=== PATIENT | female | born 1970 | race Caucasian/White ===

== ENCOUNTER 2018-01-29 18:07 | Emergency (ER) | payer BC ==
[2018-01-29 18:19] VITALS: BP 123/77
--- NOTE | 2018-01-29 18:41 | EDM.PDOC ---
ED HPI GENERAL MEDICAL PROBLEM - General Chief Complaint: Respiratory Problem Stated Complaint: CHEST PAIN / SOB Time Seen by Provider: 01/29/18 18:25 Source of Information: Reports: Patient, Old Records, RN History Limitations: Reports: No Limitations - History of Present Illness INITIAL COMMENTS - FREE TEXT/NARRATIVE: 47 yo female s/p gastric bypass presents with subjective SOB that began this afternoon. Feels a little light headed at times. Has what feels like a mild cold with a rare cough. No calf pain or LE edema. No black or bloody stools. No vomiting. No fever. Has a hx of anemia that felt like this. Has no current family doctor after her provider moved away about 5 yrs ago. No pleuritic chest pain. Has no hx of anxiety. Was here 06/20/15 and was found to have mild anemia and her HR was the same at today, 100. Her presenting complaint was similar to today and it was felt that most of her sx's were due to anxiety. She was encouraged to obtain a primary care provider, apparently she failed to do so. Onset: Today Onset Date: 01/29/18 Onset Time: 13:00 Duration: Hour(s):, Waxing/Waning Quality: Reports: Other (no pain) Severity: Mild Improves with: Reports: None Worsens with: Reports: None Context: Reports: Other (Feels similar to when she had anemia.) Associated Symptoms: Reports: No Other Symptoms Treatments DIRECTOR WORK: Reports: Other (see below) (none) - Related Data Allergies Allergy/AdvReac Type Severity Reaction Status Date / Time No Known Allergies Allergy Verified 01/29/18 18:20 Home Meds: Home Meds Calcium Citrate 500 mg PO BID #100 tablet 04/27/15 [Rx] Cholecalciferol (Vitamin D3) [Vitamin D-3] 5,000 unit PO DAILY #100 capsule 08/03 [Rx] Cyanocobalamin (Vitamin B12) [Vitamin B12] 2,500 mcg SL DAILY #100 tab.sl [Rx] Multivitamins with Iron [Child Chew Iron] 1 tab CHEW BID #100 tab.chew [Rx] Vitamin B Complex [B Complex] 1 each PO DAILY #100 tablet 04/27/15 [Rx] Iron Bis-Gly/FA/C/B12/Ca/Succ [Iron 08/06 Tablet] 1 tab PO DAILY 06/19/15 [ History] Past Medical History Other Musculoskeletal History: breast reduction - Past Surgical History GI Surgical History: Reports: Bariatric Procedure Female Surgical History: Reports: Breast Reduction, Section Social & Family History - Tobacco Use Smoking Status *Q: Current Every Day Smoker Years of Tobacco use: 18 Packs/Tins Daily: 0.5 Used Tobacco, but Quit: Yes Month/Year Tobacco Last Used: 6 years ago Second Hand Smoke Exposure: No - Caffeine Use Caffeine Use: Reports: Coffee - Alcohol Use Days Per Week of Alcohol Use: 0 - Recreational Drug Use Recreational Drug Use: No - Living Situation & Occupation Living situation: Reports: , with Spouse ED ROS GENERAL - Review of Systems Review Of Systems: See Below Constitutional: Reports: No Symptoms Respiratory: Reports: Shortness of Breath, Cough. Denies: Wheezing, Pleuritic Chest Pain, Sputum, Hemoptysis Cardiovascular: Reports: Palpitations (at times) Endocrine: Reports: No Symptoms GI/Abdominal: Reports: No Symptoms : Reports: No Symptoms Musculoskeletal: Reports: No Symptoms Skin: Reports: No Symptoms Neurological: Reports: No Symptoms Psychiatric: Reports: No Symptoms ED EXAM, GENERAL - Physical Exam Exam: See Below Exam Limited By: No Limitations General Appearance: Alert, WD/WN, No Apparent Distress Eye Exam: Bilateral Eye: Normal Inspection, PERRL Ears: Normal External Exam, Normal Canal, Hearing Grossly Normal, Normal TMs Ear Exam: Bilateral Ear: Auricle Normal, Canal Normal, TM normal Nose: Normal Inspection, Normal Mucosa, No Blood Throat/Mouth: Normal Inspection, Normal Lips, Normal Oropharynx, Normal Voice, No Airway Compromise Head: Atraumatic, Normocephalic Neck: Normal Inspection, Supple, Non-Tender Respiratory/Chest: No Respiratory Distress, Lungs Clear, Normal Breath Sounds, No Accessory Muscle Use, Other (Mild L chest wall tenderness) Cardiovascular: Regular Rate, Rhythm (Rate around 100/min) GI/Abdominal: Normal Bowel Sounds, Soft, Non-Tender, No Distention Back Exam: Normal Inspection. No: CVA Tenderness (R), CVA Tenderness (L) Extremities: Normal Inspection, Normal Range of Motion, Non-Tender, No Pedal Edema Neurological: Alert, Oriented, CN II-XII Intact, Normal Cognition, No Motor/ Sensory Deficits Psychiatric: Normal Affect, Normal Mood Skin Exam: Warm, Dry, Intact, Normal Color, No Rash Lymphatic: No Adenopathy Course - Vital Signs Text/Narrative:: Feeling better after Ativan 0.5 mg po Last Recorded V/S: Last Vital Signs Temp 36.7 C 01/29/18 18:17 Pulse 90 01/29/18 18:17 Resp 16 01/29/18 18:17 BP 123/77 01/29/18 18:17 Pulse Ox 100 01/29/18 18:17 Orthostatic Blood Pressure [ 100/67 Supine] Orthostatic Blood Pressure [ 112/77 Standing] Orthostatic Blood Pressure [ 110/76 Sitting] - Orders/Labs/Meds Orders: Active Orders 24 hr Category Date Time Status Cardiac Monitoring [RC] .As Directed Care 01/29/18 18:34 Active Orthostatic Vital Signs [RC] ASDIRECTED Care 01/29/18 18:34 Active Labs: Laboratory Tests 01/29/18 01/29/18 Range/Units 18:49 18:49 WBC 9.9 (4.5-11.0) K/uL RBC 4.53 (3.30-5.50) M/uL Hgb 11.8 L (12.0-15.0) g/dL Hct 36.6 (36.0-48.0) % MCV 81 (80-98) fL MCH 26 L (27-31) pg MCHC 32 (32-36) % Plt Count 219 (150-400) K/uL Sodium 143 (140-148) mmol/L Potassium 3.8 (3.6-5.2) mmol/L Chloride 105 (100-108) mmol/L Carbon Dioxide 26 (21-32) mmol/L Anion Gap 12.5 (5.0-14.0) mmol/L BUN 14 (7-18) mg/dL Creatinine 0.8 (0.6-1.0) mg/dL Est Cr Clr Drug Dosing 68.02 mL/min Estimated GFR (MDRD) > 60 (>60) Glucose 70 L (74-106) mg/dL Calcium 8.8 (8.5-10.1) mg/dL Meds: Medications Discontinued Medications Generic Name Dose Route Start Last Admin Trade Name Freq PRN Reason Stop Dose Admin Lorazepam 0.5 mg 01/29/18 19:13 01/29/18 19:17 Ativan PO 01/29/18 19:14 0.5 mg ONETIME ONE Administration Departure - Departure Time of Disposition: 19:58 Disposition: Home, Self-Care 01 Condition: Good Clinical Impression: Viral URI with cough, Chest wall tenderness - Discharge Information Referrals: PCP,None [Primary Care Provider] - Forms: ED Department Discharge - My Orders Last 24 Hours: My Active Orders 01/29/18 18:34 Cardiac Monitoring [RC] .As Directed Orthostatic Vital Signs [RC] ASDIRECTED - Assessment/Plan Last 24 Hours: My Active Orders 01/29/18 18:34 Cardiac Monitoring [RC] .As Directed Orthostatic Vital Signs [RC] ASDIRECTED
[2018-01-29] MEDS ORDERED: LORazepam 0.5 MG Tab PO ONE (19:13)
== END 2018-01-29 20:08 | disposition home or self-care (01) ==
LOC: JP.ED 18:07
DX: J06.9 Acute upper respiratory infection, unspecified (principal); F17.210 Nicotine dependence, cigarettes, uncomplicated; Z79.899 Other long term (current) drug therapy
CPT/HCPCS: 36415; 80048; 85027; 99285; A9270-GY

== ENCOUNTER 2019-05-04 13:34 | Emergency (ER) | payer BC ==
[2019-05-04 14:03] VITALS: BP 104/56
[2019-05-04] MEDS ORDERED: Sodium Chloride 0.9% 10 ML Syringe FLUSH ONE (14:48)
[2019-05-04] MEDS ORDERED: Sodium Chloride 0.9% 80 ML IV ONE (14:48)
--- NOTE | 2019-05-04 14:52 | EDM.PDOC ---
ED HPI GENERAL MEDICAL PROBLEM - General Chief Complaint: General Stated Complaint: FELL OFF HORSE AND MID AREA Time Seen by Provider: 05/04/19 14:25 Source of Information: Reports: Patient History Limitations: Reports: No Limitations - History of Present Illness INITIAL COMMENTS - FREE TEXT/NARRATIVE: 49-year-old female with upper abdominal and chest pain after a traumatic injury 24 hours ago. She was on a horse, leaning forward when the horse bucked upward and forced the horn of the saddle into her epigastric area of the stomach and lower chest. She's had significant pain since, especially with breathing and movement, and it has worsened since yesterday so her wanted her checked. The patient herself is also becoming concerned. No external bruising developed, no abdominal distention, no shortness of breath despite the pleuritic pain with breathing. Denies any back pain. No other injury. She was able to eat today without symptoms. - Related Data Allergies Allergy/AdvReac Type Severity Reaction Status Date / Time No Known Allergies Allergy Verified 05/04/19 14:01 Home Meds: Home Meds Calcium Citrate 500 mg PO BID #100 tablet 04/27/15 [Rx] Cholecalciferol (Vitamin D3) [Vitamin D-3] 5,000 unit PO DAILY #100 capsule 08/03 [Rx] Cyanocobalamin (Vitamin B12) [Vitamin B12] 2,500 mcg SL DAILY #100 tab.sl [Rx] Multivitamins with Iron [Child Chew Iron] 1 tab CHEW BID #100 tab.chew [Rx] Vitamin B Complex [B Complex] 1 each PO DAILY #100 tablet 04/27/15 [Rx] Iron Bis-Gly/FA/C/B12/Ca/Succ [Iron 21/7 Tablet] 1 tab PO DAILY 06/19/15 [ History] Past Medical History Other Musculoskeletal History: breast reduction - Past Surgical History GI Surgical History: Reports: Bariatric Procedure Female Surgical History: Reports: Breast Reduction, Section Social & Family History - Tobacco Use Smoking Status *Q: Current Every Day Smoker Years of Tobacco use: 30 Packs/Tins Daily: 1 - Caffeine Use Caffeine Use: Reports: Coffee - Living Situation & Occupation Living situation: Reports: , with Spouse ED ROS GENERAL - Review of Systems Review Of Systems: See Below Constitutional: Denies: Fever, Chills HEENT: Reports: No Symptoms Respiratory: Reports: Pleuritic Chest Pain. Denies: Shortness of Breath Cardiovascular: Reports: Chest Pain GI/Abdominal: Reports: Abdominal Pain. Denies: Constipation, Diarrhea, Nausea, Vomiting : Reports: No Symptoms Skin: Denies: Bruising Neurological: Denies: Dizziness, Headache Psychiatric: Reports: No Symptoms ED EXAM, GENERAL - Physical Exam Exam: See Below Exam Limited By: No Limitations General Appearance: Alert, No Apparent Distress, Other (Looks uncomfortable but not acutely distressed) Eye Exam: Bilateral Eye: Normal Inspection Head: Atraumatic Neck: Normal Inspection Respiratory/Chest: No Respiratory Distress, Lungs Clear, Other (Very tender to palpation across the lower anterior chest from the xiphoid laterally left to the costochondral junction of the left chest wall. No bruising or crepitus. Palpation of the upper abdomen is very tender with pain radiating up underneath the sternum.) Course - Vital Signs Last Recorded V/S: Last Vital Signs Temp 96.4 F 05/04/19 14:08 Pulse 94 05/04/19 14:08 Resp 21 H 05/04/19 14:08 BP 104/56 L 05/04/19 14:08 Pulse Ox 100 05/04/19 14:08 - Orders/Labs/Meds Meds: Medications Discontinued Medications Generic Name Dose Route Start Last Admin Trade Name Mananq PRN Reason Stop Dose Admin Sodium Chloride 80 mls @ 3.5 mls/sec 05/04/19 14:48 05/04/19 15:09 Normal Saline IV 05/04/19 14:49 3 mls/sec ONETIME ONE Administration Iopamidol 100 ml 05/04/19 15:00 05/04/19 15:10 Isovue-300 (61%) IV 05/04/19 16:00 100 ml . DIRECTED VIDAL Administration Sodium Chloride 10 ml 05/04/19 14:48 05/04/19 15:09 Saline Flush FLUSH 05/04/19 14:49 10 ml ONETIME ONE Administration - Re-Assessments/Exams Free Text/Narrative Re-Assessment/Exam: 05/04/19 15:[address] the chest abdomen and pelvis was obtained with IV contrast. Patient remained pretty comfortable when still and supine. Vitals remained stable. 05/04/19 15:44 CT of the chest abdomen and pelvis with IV contrast was normal. Patient was reassured, she'll increase activity as tolerated and use ibuprofen or Tylenol for pain. Recheck in 4-6 days if not improving satisfactorily. Departure - Departure Time of Disposition: 16:55 Disposition: Home, Self-Care 01 Clinical Impression: Contusion, chest wall Qualifiers: Encounter type: initial encounter Laterality: left Qualified Code(s): S20.212A - Contusion of left front wall of thorax, initial encounter Abdominal wall contusion Qualifiers: Encounter type: initial encounter Qualified Code(s): S30.1XXA - Contusion of abdominal wall, initial encounter - Discharge Information Instructions: Contusion, [id number] Referrals: PCP,None [Primary Care Provider] - Forms: ED Department Discharge Care Plan Goals: Ice or heat may help, Tylenol or ibuprofen will also be beneficial. Increase activity as tolerated and recheck in 4-6 days if not improving satisfactorily. Continue diet as tolerated.
[2019-05-04] MEDS ORDERED: Iopamidol 612 MG/ML 100 ML Bottle IV SCH (15:00)
--- NOTE | 2019-05-04 15:39 | CRLCT ---
HISTORY: Trauma, left-sided chest pain. TECHNIQUE: Intravenous contrast enhanced CT of the chest abdomen pelvis. 100 mL of Isovue-300 intravenous contrast administered. COMPARISON: No prior. FINDINGS: Chest: No acute traumatic aortic injury. No mediastinal hematoma. No pericardial effusion. No enlarged mediastinal or hilar lymph nodes. No axillary adenopathy. Minor atelectasis within the lower lobes. No consolidation. No pleural effusion or pneumothorax. There is no acute thoracic fracture. No acute rib fractures seen. No sternal fracture. - Abdomen and pelvis: No solid organ injury. No liver mass. No biliary ductal dilatation. Gallbladder appears mildly distended. Symmetric nephrograms. No renal mass or hydronephrosis. No focal pancreatic abnormality. - Postsurgical changes of gastric bypass. There is no bowel obstruction. No appendicitis. No diverticulitis. No fluid collection or free air. No abdominal aortic aneurysm. Small nonspecific retroperitoneal lymph nodes and major hepatis lymph nodes. - Chronic bilateral pars defects at L5. There is no acute lumbar fracture. No acute pelvic fracture. IMPRESSION: 1. No acute fractures. 2. Minor atelectasis within the lower lobes. No lung infiltrate, pleural effusion or pneumothorax. 3. No mediastinal hematoma or acute traumatic aortic injury. 4. No solid organ injury within the abdomen. 5. No abdominal or pelvic free fluid. Dictated by Leeroy Lora MD @ 05/04/2019 3:37:37 PM Please note that all CT scans at this facility use dose modulation, iterative reconstruction, and/or weight-based dosing when appropriate to reduce radiation dose to as low as reasonably achievable. Dictated by: Leeroy Lora MD @ 05/04/2019 15:37:40 (Electronically Signed)
== END 2019-05-04 16:55 | disposition home or self-care (01) ==
LOC: JP.ED 13:34
DX: S30.1XXA Contusion of abdominal wall, initial encounter (principal); S20.212A Contusion of left front wall of thorax, initial encounter; F17.210 Nicotine dependence, cigarettes, uncomplicated; Z79.899 Other long term (current) drug therapy; W22.8XXA Striking against or struck by other objects, initial encounter
CPT/HCPCS: 71260; 74177; 99285; J7030; Q9967

== ENCOUNTER 2019-12-05 15:49 | Observation (INO) | payer BC ==
[2019-12-05] MEDS ORDERED: Acetaminophen 500 MG Tab PO ONE (16:26)
--- NOTE | 2019-12-05 16:42 | EDM.PDOC ---
ED HPI GENERAL MEDICAL PROBLEM - General Chief Complaint: General Stated Complaint: FEELING COLD/NAUSEA/HAD IRON INFUSION Time Seen by Provider: 12/05/19 16:20 Source of Information: Reports: Patient, Family History Limitations: Reports: No Limitations - History of Present Illness INITIAL COMMENTS - FREE TEXT/NARRATIVE: 49-year-old female who went in for a physical 2 weeks ago and was found to be significantly anemic, has started oral iron but when in today for her first IV iron replacement therapy. Over the last 2 days she's been having some muscle aches and headaches but no fever or chills, no shortness of breath or cough. She received her iron infusion without complications, however 3-4 hours afterwards she started developing chills and fever and worsening generalized body aches and headache. She called the clinic to inform them and they told her to go to the emergency room. On arrival she was chilled, has generalized aches in her legs and back, and a headache. No shortness of breath, mild nausea but no vomiting, no diarrhea, no palpitations. Onset: Sudden (Generalized body aches have been ongoing for 2 days, significantly worse over the last 3 hours. Shaking chills started suddenly 3 hours ago.) Improves with: Reports: None Associated Symptoms: Reports: Fever/Chills, Headaches, Malaise. 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: Other Musculoskeletal History: breast reduction Hematologic History: Reports: Anemia, B12 Deficiency, Blood Transfusion(s), Iron Deficiency Other Hematologic History: blood transfusion 11/28/2019 - Past Surgical History GI Surgical History: Reports: Bariatric Procedure Female Surgical History: Reports: Breast Reduction, Section Social & Family History - Tobacco Use Smoking Status *Q: Current Every Day Smoker Years of Tobacco use: 20 Packs/Tins Daily: 0.5 - Caffeine Use Caffeine Use: Reports: Coffee - Recreational Drug Use Recreational Drug Use: No - Living Situation & Occupation Living situation: Reports: , with Spouse ED ROS GENERAL - Review of Systems Review Of Systems: See Below Constitutional: Reports: Fever, Chills, Malaise HEENT: Reports: No Symptoms Respiratory: Denies: Shortness of Breath, Wheezing Cardiovascular: Denies: Chest Pain GI/Abdominal: Reports: Nausea. Denies: Abdominal Pain, Diarrhea, Vomiting : Reports: No Symptoms Musculoskeletal: Reports: Muscle Pain Skin: Reports: Pallor. Denies: Rash Neurological: Reports: Tremors (Gentle shaking tremors, rigors) Psychiatric: Reports: Anxiety ED EXAM, GENERAL - Physical Exam Exam: See Below Exam Limited By: No Limitations General Appearance: Alert, No Apparent Distress, Anxious Eye Exam: Bilateral Eye: Normal Inspection Respiratory/Chest: No Respiratory Distress, Lungs Clear Cardiovascular: Regular Rate, Rhythm, Tachycardia (Mild tachycardia) GI/Abdominal: Soft, Tender (Generalized tenderness to palpation but no focal tenderness or guarding) Extremities: Other (She does react with tenderness to palpation of the muscles in general of the arms and legs). No: Pedal Edema Neurological: Alert, Oriented, No Motor/Sensory Deficits Psychiatric: Anxious Course - Vital Signs Last Recorded V/S: Last Vital Signs Temp 97.0 F 12/06/19 14:39 Pulse 83 12/06/19 14:39 Resp 16 12/06/19 14:39 BP 90/56 L 12/06/19 14:39 Pulse Ox 97 12/06/19 11:06 - Orders/Labs/Meds Labs: Laboratory Tests 12/05/19 12/05/19 12/05/19 Range/Units 16:39 16:39 17:40 WBC 10.2 (4.5-11.0) K/uL RBC 4.44 (3.30-5.50) M/uL Hgb 8.0 L D (12.0-15.0) g/dL Hct 27.8 L (36.0-48.0) % MCV 63 L (80-98) fL MCH 18 L (27-31) pg MCHC 29 L (32-36) % Plt Count 249 (150-400) K/uL Neut % (Auto) 84 H (36-66) % Lymph % (Auto) 4 L (24-44) % [place] % (Auto) 6 (2-6) % Eos % (Auto) 5 H (2-4) % Baso % (Auto) 1 (0-1) % ESR (0-25) mm/hr Sodium 135 L (140-148) mmol/L Potassium 3.8 (3.6-5.2) mmol/L Chloride 101 (100-108) mmol/L Carbon Dioxide 23 (21-32) mmol/L Anion Gap 14.8 H (5.0-14.0) mmol/L BUN 15 (7-18) mg/dL Creatinine 0.8 (0.6-1.0) mg/dL Est Cr Clr Drug Dosing 63.48 mL/min Estimated GFR (MDRD) > 60 (>60) Glucose 100 (74-106) mg/dL Calcium 8.5 (8.5-10.1) mg/dL Magnesium 1.7 L (1.8-2.4) mg/dL Total Bilirubin 0.3 (0.2-1.0) mg/dL AST 56 H (15-37) U/L ALT 50 (12-78) U/L Alkaline Phosphatase 208 H (46-116) U/L Creatine Kinase 47 (26-192) U/L C-Reactive Protein (0.0-0.3) mg/dL Total Protein 7.2 (6.4-8.2) g/dL Albumin 3.2 L (3.4-5.0) g/dL Globulin 4.0 H (2.3-3.5) g/dL Albumin/Globulin Ratio 0.8 L (1.2-2.2) TSH, Ultra Sensitive (0.358-3.740) uIU/mL Urine Color Yellow (YELLOW) Urine Appearance Clear (CLEAR) Urine pH 7.5 (5.0-8.0) Ur Specific [place] 1.020 (1.008-1.030) Urine Protein Negative (NEGATIVE) mg/dL Urine Glucose (UA) Negative (NEGATIVE) mg/dL Urine Ketones Negative (NEGATIVE) mg/dL Urine Occult Blood Negative (NEGATIVE) Urine Nitrite Negative (NEGATIVE) Urine Bilirubin Negative (NEGATIVE) Urine Urobilinogen 1.0 (0.2-1.0) EU/dL Ur Leukocyte Esterase Negative (NEGATIVE) Urine RBC Not seen (0-5) Urine WBC 0-5 (0-5) Ur Epithelial Cells Few Amorphous Sediment Not seen Urine Bacteria Few Urine Mucus Few 12/05/19 12/05/19 Range/Units 18:20 18:20 WBC (4.5-11.0) K/uL RBC (3.30-5.50) M/uL Hgb (12.0-15.0) g/dL Hct (36.0-48.0) % MCV (80-98) fL MCH (27-31) pg MCHC (32-36) % Plt Count (150-400) K/uL Neut % (Auto) (36-66) % Lymph % (Auto) (24-44) % [place] % (Auto) (2-6) % Eos % (Auto) (2-4) % Baso % (Auto) (0-1) % ESR 45 H (0-25) mm/hr Sodium (140-148) mmol/L Potassium (3.6-5.2) mmol/L Chloride (100-108) mmol/L Carbon Dioxide (21-32) mmol/L Anion Gap (5.0-14.0) mmol/L BUN (7-18) mg/dL Creatinine (0.6-1.0) mg/dL Est Cr Clr Drug Dosing mL/min Estimated GFR (MDRD) (>60) Glucose (74-106) mg/dL Calcium (8.5-10.1) mg/dL Magnesium (1.8-2.4) mg/dL Total Bilirubin (0.2-1.0) mg/dL AST (15-37) U/L ALT (12-78) U/L Alkaline Phosphatase (46-116) U/L Creatine Kinase (26-192) U/L C-Reactive Protein 1.01 H (0.0-0.3) mg/dL Total Protein (6.4-8.2) g/dL Albumin (3.4-5.0) g/dL Globulin (2.3-3.5) g/dL Albumin/Globulin Ratio (1.2-2.2) TSH, Ultra Sensitive 1.300 (0.358-3.740) uIU/mL Urine Color (YELLOW) Urine Appearance (CLEAR) Urine pH (5.0-8.0) Ur Specific [place] (1.008-1.030) Urine Protein (NEGATIVE) mg/dL Urine Glucose (UA) (NEGATIVE) mg/dL Urine Ketones (NEGATIVE) mg/dL Urine Occult Blood (NEGATIVE) Urine Nitrite (NEGATIVE) Urine Bilirubin (NEGATIVE) Urine Urobilinogen (0.2-1.0) EU/dL Ur Leukocyte Esterase (NEGATIVE) Urine RBC (0-5) Urine WBC (0-5) Ur Epithelial Cells Amorphous Sediment Urine Bacteria Urine Mucus Meds: Medications Discontinued Medications Generic Name Dose Route Start Last Admin Trade Name Freq PRN Reason Stop Dose Admin Acetaminophen 1,000 mg 12/05/19 16:26 12/05/19 16:34 Tylenol Extra Strength PO 12/05/19 16:27 1,000 mg ONETIME ONE Administration Acetaminophen 650 mg 12/05/19 19:20 Tylenol PO Q4H PRN Pain (Mild 1-3)/fever Sodium Chloride 1,000 mls @ 100 mls/hr 12/05/19 19:20 12/06/19 05:24 Normal Saline IV 100 mls/hr ASDIRECTED VIDAL Administration Sodium Chloride 500 mls @ 500 mls/hr 12/06/19 08:15 12/06/19 09:06 Normal Saline IV 12/06/19 09:14 500 mls/hr .BOLUS ONE Administration Ibuprofen 600 mg 12/05/19 19:20 12/06/19 03:55 Motrin PO 600 mg Q6H PRN Administration Pain/Fever Magnesium Hydroxide 30 ml 12/05/19 19:20 Milk Of Magnesia PO Q12H PRN Constipation Ondansetron HCl 4 mg 12/05/19 19:20 Zofran Odt PO Q6H PRN Nausea able to take PO Ondansetron HCl 4 mg 12/05/19 19:20 Zofran IV Q6H PRN Nausea/Vomiting Senna/Docusate Sodium 1 tab 12/05/19 19:20 Senna Plus PO BID PRN Constipation - Re-Assessments/Exams Free Text/Narrative Re-Assessment/Exam: 12/05/19 16:41 Patient was given 1000 mg of acetaminophen orally. Her temperature is 99.9. Warm blankets were provided, CBC CMP and CK were obtained as well as influenza antigens. Iron infusion reactions were reviewed on up-to-date, no further treatment was recommended 12/05/19 17:36 Hemoglobin is 8.0, white count is normal. CK is normal. Patient spiked a temperature to 101.7, then became warm and week when the fever likely plateaued. I discussed her condition with the hospitalist service, chest x-ray and UA was recommended before a decision for admission. These were ordered. Influenzas returned negative. Departure - Departure Time of Disposition: 19:00 Disposition: Admitted As Inpatient 65 Clinical Impression: Myalgia Fever Qualifiers: Fever type: unspecified Qualified Code(s): R50.9 - Fever, unspecified - Discharge Information Sepsis Event Note - Evaluation Sepsis Screening Result: Possible Sepsis Risk - Focused Exam Date Exam was Performed: 12/08/19 Time Exam was Performed: 07:23
--- NOTE | 2019-12-05 18:31 | PCM.HP.2 ---
H&P History of Present Illness - General Date of Service: 12/05/19 Admit Problem/Dx: Admission Diagnosis/Problem Admission Diagnosis/Problem Fever Source of Information: Patient, Family, Provider History Limitations: Reports: No Limitations - History of Present Illness Initial Comments - Free Text/Narative: CC: I couldn't stop shaking HPI: Ilsa presents to the emergency room today with rigors. She reports a fairly longstanding history of fatigue which has been slowly worsening. 2 weeks ago she developed diffuse myalgias which have also been worsening. These involve essentially all of the muscles of her body with most prominent symptoms in the arms legs and lower back. Over the past couple of days she has had a headache and has been more fatigued. Appetite has been worse than usual. Today after her iron infusion she developed shaking chills that lasted for about 2 hours. She does not have a cough or sore throat. No complaints of abdominal pain. She has had some mild diarrhea as well as nausea and one episode of vomiting today. No complaints of dysuria or increased urinary frequency. She has not noticed any skin rashes and there are no new lumps or bumps. No easy bruising. No weight loss. She reports that she just feels very weak and very tired. If she sits down during the day she will fall asleep. After sitting for a while her muscle aches and pains are much worse than when she is up and moving around. Things have been steadily getting worse. Work-up in the emergency room revealed a hemoglobin of 8 but otherwise labs are fairly unremarkable. She was febrile. She will be admitted to initiate and expedited work-up with her fever and myalgias. No strong evidence to support infection at this time other than possibly a viral infection. 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 Musculoskeletal History: breast reduction Hematologic History: Reports: Anemia, B12 Deficiency, Blood Transfusion(s), Iron Deficiency Other Hematologic History: blood transfusion 11/28/2019 - Past Surgical History GI Surgical History: Reports: Bariatric Procedure Female Surgical History: Reports: Breast Reduction, Section Social & Family History - Family History Cardiac: Reports: CAD (dad) Oncologic: Reports: Ovarian (mom) - Tobacco Use Smoking Status *Q: Current Every Day Smoker Years of Tobacco use: 20 Packs/Tins Daily: 0.5 - Caffeine Use Caffeine Use: Reports: Coffee - Alcohol Use Alcohol Use History: No - Recreational Drug Use Recreational Drug Use: No - Living Situation & Occupation Living situation: Reports: , with Spouse H&P Review of Systems - Review of Systems: Review Of Systems: See Below Free Text/Narrative: A complete 12 point review of systems was obtained. Pertinent positives and negatives are noted in the history of present illness. All other systems were reviewed and were negative except as noted. Exam - Exam Exam: See Below - Vital Signs Vital Signs: Last Vital Signs Temp 37.7 C 12/05/19 17:27 Pulse 98 12/05/19 18:24 Resp 16 12/05/19 18:24 BP 103/58 L 12/05/19 18:24 Pulse Ox 97 12/05/19 18:24 Weight: 62.2 kg - Exam Quality Assessment: No: Supplemental Oxygen General: Alert, Oriented, Cooperative, Mild Distress HEENT: Conjunctiva Clear. No: Mucosa Moist & Kemmerer (dry), Scleral Icterus Neck: Supple, Trachea Midline. No: Lymphadenopathy Lungs: Clear to Auscultation, Normal Respiratory Effort Cardiovascular: Regular Rhythm, Tachycardia. No: Systolic Murmur GI/Abdominal Exam: Normal Bowel Sounds, Soft, Non-Tender, No Distention, No Mass Back Exam: Normal Inspection, Full Range of Motion Extremities: No Pedal Edema, Other (no axillary LAD). No: Joint Swelling, Increased Warmth Peripheral Pulses: 2+: Dorsalis Pedis (L), Dorsalis Pedis (R) Skin: Warm, Dry, Ecchymosis (left bicep ). No: Rash, Petechia Neuro Extensive - Mental Status: Alert, Oriented x3, Nl Response to Commands Neuro Extensive - Motor, Sensory, Reflexes: No: Dysarthria, Abnormal Motor, Tremor Psychiatric: Alert, Normal Affect - Patient Data Lab Results Last 24 hrs: Laboratory Results - last 24 hr 12/05/19 12/05/19 12/05/19 Range/Units 16:39 16:39 17:40 WBC 10.2 (4.5-11.0) K/uL RBC 4.44 (3.30-5.50) M/uL Hgb 8.0 L D (12.0-15.0) g/dL Hct 27.8 L (36.0-48.0) % MCV 63 L (80-98) fL MCH 18 L (27-31) pg MCHC 29 L (32-36) % Plt Count 249 (150-400) K/uL Neut % (Auto) 84 H (36-66) % Lymph % (Auto) 4 L (24-44) % [place] % (Auto) 6 (2-6) % Eos % (Auto) 5 H (2-4) % Baso % (Auto) 1 (0-1) % Sodium 135 L (140-148) mmol/L Potassium 3.8 (3.6-5.2) mmol/L Chloride 101 (100-108) mmol/L Carbon Dioxide 23 (21-32) mmol/L Anion Gap 14.8 H (5.0-14.0) mmol/L BUN 15 (7-18) mg/dL Creatinine 0.8 (0.6-1.0) mg/dL Est Cr Clr Drug Dosing 63.48 mL/min Estimated GFR (MDRD) > 60 (>60) Glucose 100 (74-106) mg/dL Calcium 8.5 (8.5-10.1) mg/dL Magnesium 1.7 L (1.8-2.4) mg/dL Total Bilirubin 0.3 (0.2-1.0) mg/dL AST 56 H (15-37) U/L ALT 50 (12-78) U/L Alkaline Phosphatase 208 H (46-116) U/L Creatine Kinase 47 (26-192) U/L Total Protein 7.2 (6.4-8.2) g/dL Albumin 3.2 L (3.4-5.0) g/dL Globulin 4.0 H (2.3-3.5) g/dL Albumin/Globulin Ratio 0.8 L (1.2-2.2) Urine Color Yellow (YELLOW) Urine Appearance Clear (CLEAR) Urine pH 7.5 (5.0-8.0) Ur Specific [place] 1.020 (1.008-1.030) Urine Protein Negative (NEGATIVE) mg/dL Urine Glucose (UA) Negative (NEGATIVE) mg/dL Urine Ketones Negative (NEGATIVE) mg/dL Urine Occult Blood Negative (NEGATIVE) Urine Nitrite Negative (NEGATIVE) Urine Bilirubin Negative (NEGATIVE) Urine Urobilinogen 1.0 (0.2-1.0) EU/dL Ur Leukocyte Esterase Negative (NEGATIVE) Urine RBC Not seen (0-5) Urine WBC 0-5 (0-5) Ur Epithelial Cells Few Amorphous Sediment Not seen Urine Bacteria Few Urine Mucus Few Result Diagrams: 12/05/19 16:39 12/05/19 16:39 Anthony Results Last 24 hrs: Microbiology 12/05/19 16:31 Influenza Type A Antigen Screen - Final Nasal Aspirate, Unspecified NEGATIVE INFLUENZA A VIRUS AG REFERENCE RANGE: NEGATIVE Influenza Type B Antigen Screen - Final NEGATIVE INFLUENZA B VIRUS AG REFERENCE RANGE: NEGATIVE Imaging Impressions Last 24 hrs: CXR - images personally reviewed - lungs clear with no mass, infiltrate or effusion. heart size is normal Sepsis Event Note - Evaluation Sepsis Screening Result: Possible Sepsis Risk - Focused Exam Vital Signs: Vital Signs Temp Pulse Resp BP Pulse Ox 12/05/19 18:24 98 16 103/58 L 97 12/05/19 17:27 37.7 C 103 H 16 85/46 L 95 12/05/19 16:52 38.6 C H 102 H 16 115/59 L 95 12/05/19 16:10 37.7 C 113 H 22 H 144/124 H 100 12/05/19 16:03 37.7 C 113 H 22 H 144/124 H 100 Date Exam was Performed: 12/05/19 Time Exam was Performed: 18:49 *Q Meaningful Use (ADM) - VTE Risk Assess *Q Each Risk Factor Represents 1 Point: None Total Score 1 Point Risk Factors: 0 Each Risk Factor Represents 2 Points: None Total Score 2 Point Risk Factors: 0 Each Risk Factor Represents 3 Points: None Total Score 3 Point Risk Factors: 0 Each Risk Factor Represents 5 Points: None Total Score 5 Point Risk Factors: 0 Venous Thromboembolism Risk Factor Score *Q: 0 - Problem List (1) Fever SNOMED Code(s): 943733649 ICD Code: R50.9 - FEVER, UNSPECIFIED Status: Acute Current Visit: Yes Qualifiers: Fever type: unspecified Qualified Code(s): R50.9 - Fever, unspecified (2) Myalgia SNOMED Code(s): 19013028 ICD Code: M79.10 - MYALGIA, UNSPECIFIED SITE Status: Acute Current Visit : Yes (3) Fatigue SNOMED Code(s): 39908131 ICD Code: R53.83 - OTHER FATIGUE Status: Acute Current Visit: Yes Qualifiers: Fatigue type: other Qualified Code(s): R53.83 - Other fatigue (4) Iron deficiency anemia SNOMED Code(s): 58231888 ICD Code: D50.9 - IRON DEFICIENCY ANEMIA, UNSPECIFIED Status: Acute Current Visit: Yes Qualifiers: Iron deficiency anemia type: unspecified iron deficiency Qualified Code(s) : D50.9 - Iron deficiency anemia, unspecified Problem List Initiated/Reviewed/Updated: Yes Orders Last 24hrs: Active Orders 24 hr Category Date Time Status Patient Status Manage Transfer [TRANSFER] Routine ADT 12/05/19 18:22 Ordered Chest 2V [CR] Routine Exams 12/05/19 17:34 Taken C-REACTIVE PROTEIN [CHEM] Stat Lab 12/05/19 18:20 Ordered SEDIMENTATION RATE MANUAL [HEME] Stat Lab 12/05/19 18:20 Ordered TSH ULTRASENSITIVE [CHEM] Stat Lab 12/05/19 18:20 Ordered Resuscitation Status Routine Resus Stat 12/05/19 18:22 Ordered Assessment/Plan Comment:: ASSESSMENT AND PLAN - Fever, myalgias and fatigue-most profound symptoms are the fatigue and myalgias and the fever is new. No weight loss or previous fevers. No night sweats. Differential could include hypothyroidism, autoimmune inflammatory condition, occult malignancy, viral infection or other very atypical infection. This does not sound like lupus. No localizing symptoms at this time. LDH is normal. She did have an iron infusion today which could have caused the fever/Rigors but she had significant symptoms prior to this infusion. -ESR, CRP, LDH -Blood cultures -ANCA panel, RUSSELL -Babesiosis antibody panel -Symptomatic management Iron deficiency anemia-no history to suggest blood loss. LDH is pending looking for hemolysis. She has recently received blood transfusions and did have an iron infusion today. -Repeat hemoglobin in the morning Status post gastric bypass surgery- Maintenance issues - - DVT prophylaxis -mechanical - GI prophylaxis -not indicated - Nutrition -regular diet - Luna catheter -not indicated CODE STATUS -full code Admission justification -the patient will be admitted to observation status for expedited work-up and symptom management. Disposition - I would anticipate discharge home tomorrow Primary care physician -Dr. Dai Robin M.D. - Mortality Measure Prognosis:: Good
--- NOTE | 2019-12-05 18:37 | CRLCR ---
INDICATION: Dyspnea. TECHNIQUE: PA and lateral chest. COMPARISON: 06/20/2015. FINDINGS: The lungs are clear. Normal heart size and pulmonary vascular pattern with no pleural effusions. Stable osseous thorax. Gown snaps at the shoulders. IMPRESSION: No acute radiographic chest finding. Dictated by Miguel Diez MD @ Dec 05 2019 6:35PM Signed by Dr. Miguel Diez @ Dec 05 2019 6:36PM
[2019-12-05] MEDS ORDERED: Ondansetron 4 MG/2 ML SDV IV PRN (19:20)
[2019-12-05] MEDS ORDERED: Magnesium Hydroxide 400 MG/5 ML Susp 30 ML Cup PO PRN (19:20)
[2019-12-05] MEDS ORDERED: Acetaminophen 325 MG Tab PO PRN (19:20)
[2019-12-05] MEDS ORDERED: Ondansetron 4 MG Tab.DIS PO PRN (19:20)
[2019-12-05] MEDS ORDERED: Ibuprofen 600 MG Tab PO PRN (19:20)
[2019-12-05] MEDS: Sodium Chloride 0.9% 1,000 ML IV SCH (19:45)
[2019-12-06] MEDS: Sodium Chloride 0.9% 1,000 ML IV SCH (05:24)
[2019-12-06] MEDS ORDERED: Sodium Chloride 0.9% 500 ML IV ONE (08:15)
[2019-12-06 14:44] VITALS: BP 90/56; PULSE 83
--- NOTE | 2019-12-06 15:00 | PCM.DCSUM1 ---
Discharge Summary - Hospital Course Brief History: 49-year-old female with a history of a Reji-en-Y gastric bypass remotely who presented with fever, myalgias and fatigue. She was admitted for observation and expedited work-up with significant microcytic anemia noted at presentation. Diagnosis: Stroke: No - Discharge Data Discharge Date: 12/06/19 Discharge Disposition: Home, Self-Care 01 Condition: Good - Referral to Home Health Primary Care Physician: Dai Juarez DO - Discharge Diagnosis/Problem(s) (1) Iron deficiency anemia SNOMED Code(s): 26295653 ICD Code: D50.9 - IRON DEFICIENCY ANEMIA, UNSPECIFIED Status: Acute Current Visit: Yes Qualifiers: Iron deficiency anemia type: other iron deficiency Qualified Code(s): D50.8 - Other iron deficiency anemias (2) Fever SNOMED Code(s): 264007482 ICD Code: R50.9 - FEVER, UNSPECIFIED Status: Acute Current Visit: Yes Qualifiers: Fever type: unspecified Qualified Code(s): R50.9 - Fever, unspecified (3) Myalgia SNOMED Code(s): 34399836 ICD Code: M79.10 - MYALGIA, UNSPECIFIED SITE Status: Acute Current Visit : Yes (4) Fatigue SNOMED Code(s): 50414342 ICD Code: R53.83 - OTHER FATIGUE Status: Acute Current Visit: Yes Qualifiers: Fatigue type: other Qualified Code(s): R53.83 - Other fatigue - Patient Summary/Data Labs Pending at D/C: RUSSELL, ANCA and babesiosis Hospital Course: Ilsa presented to the emergency room with fever, headache, myalgia and significant fatigue several hours after receiving an iron transfusion. She did have a fever in the emergency room. Hemoglobin was noted to be 8. Other laboratory studies were fairly unremarkable. There was no evidence for infection. She was admitted for hydration and expedited work-up. CRP and sedimentation rate were mildly elevated. Thyroid testing was normal. There is no evidence for hemolysis. Patient received IV fluids overnight. The morning after admission her hemoglobin was 7.6. We did elect to transfuse 1 additional unit of blood because of her significant fatigue and weakness. She tolerated this transfusion well. We did also collect blood for RUSSELL, ANCA and babesiosis and these will be sent to a reference lab but results will not be available for several days. She is feeling better after hydration and a blood transfusion. I believe she is safe for discharge home at this time. She has not had any fever since admission. She will be following up on Sunday for another iron transfusion and then with Dr. Dai Juarez later in the week. I suspect all of her symptoms are related to severe iron deficiency and hopefully will improve with the blood transfusions and iron transfusions. - Patient Instructions Diet: Regular Diet as Tolerated Activity: As Tolerated Driving: May Drive Today Showering/Bathing: May Shower Notify Provider of: Fever, Increased Pain, Nausea and/or Vomiting Other/Special Instructions: 1. You were in the hospital for observation after fever, myalgia and fatigue. I suspect your symptoms are related to iron deficiency. There was no evidence that your red blood cells are breaking down ( hemolysis) and we did not find any strong evidence to support infection. There are several blood test that will be sent to a reference lab and the results should be available at the end of the week. You can review these tests with Dr. Dai Juarez at your follow-up appointment. I would recommend that you follow-up for the iron infusion as scheduled on Sunday. - Discharge Plan *PRESCRIPTION DRUG MONITORING PROGRAM REVIEWED*: Not Applicable *COPY OF PRESCRIPTION DRUG MONITORING REPORT IN PATIENT FERNANDA: Not Applicable Home Medications: Home Meds Multivitamins with Iron [Child Chew Iron] 1 tab CHEW BID #100 tab.chew [Rx] Iron Bis-Gly/FA/C/B12/Ca/Succ [Iron 21/7 Tablet] 1 tab PO DAILY 06/19/15 [ History] Oxygen Therapy Mode: Room Air Patient Handouts: Iron-Rich Diet Referrals: Dai Juarez, [Primary Care Provider] - (f/u with Dr Juarez in a week to get the rest of your lab results ) - Discharge Summary/Plan Comment DC Time >30 min.: No - Patient Data Vitals - Most Recent: Last Vital Signs Temp 36.1 C 12/06/19 14:39 Pulse 83 12/06/19 14:39 Resp 16 12/06/19 14:39 BP 90/56 L 12/06/19 14:39 Pulse Ox 97 12/06/19 11:06 Weight - Most Recent: 60.237 kg I&O - Last 24 hours: Intake & Output 12/05/19 12/06/19 12/06/19 22:59 06:59 14:59 Intake Total 093 443 4099 Output Total 400 1200 Balance -100 956 109 Lab Results - Last 24 hrs: Laboratory Results - last 24 hr 12/05/19 12/05/19 12/05/19 Range/Units 16:39 16:39 17:40 WBC 10.2 (4.5-11.0) K/uL RBC 4.44 (3.30-5.50) M/uL Hgb 8.0 L D (12.0-15.0) g/dL Hct 27.8 L (36.0-48.0) % MCV 63 L (80-98) fL MCH 18 L (27-31) pg MCHC 29 L (32-36) % Plt Count 249 (150-400) K/uL Neut % (Auto) 84 H (36-66) % Lymph % (Auto) 4 L (24-44) % [place] % (Auto) 6 (2-6) % Eos % (Auto) 5 H (2-4) % Baso % (Auto) 1 (0-1) % ESR (0-25) mm/hr Sodium 135 L (140-148) mmol/L Potassium 3.8 (3.6-5.2) mmol/L Chloride 101 (100-108) mmol/L Carbon Dioxide 23 (21-32) mmol/L Anion Gap 14.8 H (5.0-14.0) mmol/L BUN 15 (7-18) mg/dL Creatinine 0.8 (0.6-1.0) mg/dL Est Cr Clr Drug Dosing 63.48 mL/min Estimated GFR (MDRD) > 60 (>60) Glucose 100 (74-106) mg/dL Calcium 8.5 (8.5-10.1) mg/dL Magnesium 1.7 L (1.8-2.4) mg/dL Total Bilirubin 0.3 (0.2-1.0) mg/dL AST 56 H (15-37) U/L ALT 50 (12-78) U/L Alkaline Phosphatase 208 H (46-116) U/L Lactate Dehydrogenase (82-234) U/L Creatine Kinase 47 (26-192) U/L C-Reactive Protein (0.0-0.3) mg/dL Total Protein 7.2 (6.4-8.2) g/dL Albumin 3.2 L (3.4-5.0) g/dL Globulin 4.0 H (2.3-3.5) g/dL Albumin/Globulin Ratio 0.8 L (1.2-2.2) TSH, Ultra Sensitive (0.358-3.740) uIU/mL Urine Color Yellow (YELLOW) Urine Appearance Clear (CLEAR) Urine pH 7.5 (5.0-8.0) Ur Specific [place] 1.020 (1.008-1.030) Urine Protein Negative (NEGATIVE) mg/dL Urine Glucose (UA) Negative (NEGATIVE) mg/dL Urine Ketones Negative (NEGATIVE) mg/dL Urine Occult Blood Negative (NEGATIVE) Urine Nitrite Negative (NEGATIVE) Urine Bilirubin Negative (NEGATIVE) Urine Urobilinogen 1.0 (0.2-1.0) EU/dL Ur Leukocyte Esterase Negative (NEGATIVE) Urine RBC Not seen (0-5) Urine WBC 0-5 (0-5) Ur Epithelial Cells Few Amorphous Sediment Not seen Urine Bacteria Few Urine Mucus Few Blood Type Gel Antibody Screen Crossmatch 12/05/19 12/05/19 12/05/19 Range/Units 18:20 18:20 19:20 WBC (4.5-11.0) K/uL RBC (3.30-5.50) M/uL Hgb (12.0-15.0) g/dL Hct (36.0-48.0) % MCV (80-98) fL MCH (27-31) pg MCHC (32-36) % Plt Count (150-400) K/uL Neut % (Auto) (36-66) % Lymph % (Auto) (24-44) % [place] % (Auto) (2-6) % Eos % (Auto) (2-4) % Baso % (Auto) (0-1) % ESR 45 H (0-25) mm/hr Sodium (140-148) mmol/L Potassium (3.6-5.2) mmol/L Chloride (100-108) mmol/L Carbon Dioxide (21-32) mmol/L Anion Gap (5.0-14.0) mmol/L BUN (7-18) mg/dL Creatinine (0.6-1.0) mg/dL Est Cr Clr Drug Dosing mL/min Estimated GFR (MDRD) (>60) Glucose (74-106) mg/dL Calcium (8.5-10.1) mg/dL Magnesium (1.8-2.4) mg/dL Total Bilirubin (0.2-1.0) mg/dL AST (15-37) U/L ALT (12-78) U/L Alkaline Phosphatase (46-116) U/L Lactate Dehydrogenase 189 (82-234) U/L Creatine Kinase (26-192) U/L C-Reactive Protein 1.01 H (0.0-0.3) mg/dL Total Protein (6.4-8.2) g/dL Albumin (3.4-5.0) g/dL Globulin (2.3-3.5) g/dL Albumin/Globulin Ratio (1.2-2.2) TSH, Ultra Sensitive 1.300 (0.358-3.740) uIU/mL Urine Color (YELLOW) Urine Appearance (CLEAR) Urine pH (5.0-8.0) Ur Specific [place] (1.008-1.030) Urine Protein (NEGATIVE) mg/dL Urine Glucose (UA) (NEGATIVE) mg/dL Urine Ketones (NEGATIVE) mg/dL Urine Occult Blood (NEGATIVE) Urine Nitrite (NEGATIVE) Urine Bilirubin (NEGATIVE) Urine Urobilinogen (0.2-1.0) EU/dL Ur Leukocyte Esterase (NEGATIVE) Urine RBC (0-5) Urine WBC (0-5) Ur Epithelial Cells Amorphous Sediment Urine Bacteria Urine Mucus Blood Type Gel Antibody Screen Crossmatch 12/06/19 12/06/19 12/06/19 Range/Units 05:30 05:30 10:12 WBC 5.7 (4.5-11.0) K/uL RBC 4.15 (3.30-5.50) M/uL Hgb 7.6 L (12.0-15.0) g/dL Hct 26.8 L (36.0-48.0) % MCV 65 L (80-98) fL MCH 18 L (27-31) pg MCHC 28 L (32-36) % Plt Count 210 (150-400) K/uL Neut % (Auto) (36-66) % Lymph % (Auto) (24-44) % [place] % (Auto) (2-6) % Eos % (Auto) (2-4) % Baso % (Auto) (0-1) % ESR (0-25) mm/hr Sodium 139 L (140-148) mmol/L Potassium 3.9 (3.6-5.2) mmol/L Chloride 106 (100-108) mmol/L Carbon Dioxide 24 (21-32) mmol/L Anion Gap 12.9 (5.0-14.0) mmol/L BUN 16 (7-18) mg/dL Creatinine 0.5 L (0.6-1.0) mg/dL Est Cr Clr Drug Dosing 101.58 mL/min Estimated GFR (MDRD) > 60 (>60) Glucose 90 (74-106) mg/dL Calcium 8.4 L (8.5-10.1) mg/dL Magnesium (1.8-2.4) mg/dL Total Bilirubin (0.2-1.0) mg/dL AST (15-37) U/L ALT (12-78) U/L Alkaline Phosphatase (46-116) U/L Lactate Dehydrogenase (82-234) U/L Creatine Kinase (26-192) U/L C-Reactive Protein (0.0-0.3) mg/dL Total Protein (6.4-8.2) g/dL Albumin (3.4-5.0) g/dL Globulin (2.3-3.5) g/dL Albumin/Globulin Ratio (1.2-2.2) TSH, Ultra Sensitive (0.358-3.740) uIU/mL Urine Color (YELLOW) Urine Appearance (CLEAR) Urine pH (5.0-8.0) Ur Specific [place] (1.008-1.030) Urine Protein (NEGATIVE) mg/dL Urine Glucose (UA) (NEGATIVE) mg/dL Urine Ketones (NEGATIVE) mg/dL Urine Occult Blood (NEGATIVE) Urine Nitrite (NEGATIVE) Urine Bilirubin (NEGATIVE) Urine Urobilinogen (0.2-1.0) EU/dL Ur Leukocyte Esterase (NEGATIVE) Urine RBC (0-5) Urine WBC (0-5) Ur Epithelial Cells Amorphous Sediment Urine Bacteria Urine Mucus Blood Type A POSITIVE Gel Antibody Screen Negative Crossmatch See Detail VIVEK Results - Last 24 hrs: Microbiology 12/05/19 16:31 Influenza Type A Antigen Screen - Final Nasal Aspirate, Unspecified NEGATIVE INFLUENZA A VIRUS AG REFERENCE RANGE: NEGATIVE Influenza Type B Antigen Screen - Final NEGATIVE INFLUENZA B VIRUS AG REFERENCE RANGE: NEGATIVE Med Orders - Current: Current Medications Acetaminophen (Tylenol) 650 mg PO Q4H PRN PRN Reason: Pain (Mild 1-3)/fever Sodium Chloride (Normal Saline) 1,000 mls @ 100 mls/hr IV ASDIRECTED VIDAL Last Admin: 12/06/19 05:24 Dose: 100 mls/hr Ibuprofen (Motrin) 600 mg PO Q6H PRN PRN Reason: Pain/Fever Last Admin: 12/06/19 03:55 Dose: 600 mg Magnesium Hydroxide (Milk Of Magnesia) 30 ml PO Q12H PRN PRN Reason: Constipation Ondansetron HCl (Zofran Odt) 4 mg PO Q6H PRN PRN Reason: Nausea able to take PO Ondansetron HCl (Zofran) 4 mg IV Q6H PRN PRN Reason: Nausea/Vomiting Senna/Docusate Sodium (Senna Plus) 1 tab PO BID PRN PRN Reason: Constipation Discontinued Medications Acetaminophen (Tylenol Extra Strength) 1,000 mg PO ONETIME ONE Stop: 12/05/19 16:27 Last Admin: 12/05/19 16:34 Dose: 1,000 mg Sodium Chloride (Normal Saline) 500 mls @ 500 mls/hr IV .BOLUS ONE Stop: 12/06/19 09:14 Last Admin: 12/06/19 09:06 Dose: 500 mls/hr
[2019-12-10 13:09] LABS: BABESIA MICROTI IGG <1:10 (Neg:<1:10); BABESIA MICROTI IGM <1:10 (Neg:<1:10)
[2019-12-10 17:08] LABS: ANTIMYELOPEROXIDASE (MPO) ABS 10.4 U/mL (0.0-9.0); ANTIPROTEINASE 3 (PR-3) ABS <3.5 U/mL (0.0-3.5); ATYPICAL PANCA <1:20 titer (Neg:<1:20); CYTOPLASMIC (C-ANCA) <1:20 titer (Neg:<1:20); PERINUCLEAR (P-ANCA) <1:20 titer (Neg:<1:20)
== END 2019-12-06 17:20 | disposition home or self-care (01) ==
LOC: JP.ED 15:49 → JP.MS 18:22
PROVIDERS: ADMIT Internal Medicine; ATTEND Internal Medicine
DX: R50.9 Fever, unspecified (principal); D50.9 Iron deficiency anemia, unspecified; M79.10 Myalgia, unspecified site; F17.210 Nicotine dependence, cigarettes, uncomplicated; Z98.84 Bariatric surgery status
CPT/HCPCS: 36415; 36430; 71046; 80048; 80053; 81001; 82550; 83520; 83615; 83735; 84443; 85025; 85027; 85060; 85651; 86038; 86140; 86256; 86753; 86850; 86900; 86901; 86920; 86922; 87040; 87804; 87804-59; 96360; 96361; 99285-25; A9270-GY; G0378; J7030; J7040; P9016